=== PATIENT | female | born 1995 | race Caucasian/White ===

== ENCOUNTER 2018-07-23 08:04 | Emergency (ER) | payer OTHER ==
[2018-07-23] MEDS ORDERED: SODIUM CHLORIDE 0.9% 1,000 ML IV ONE ×3 (08:16→12:23)
--- NOTE | 2018-07-23 08:19 | ED Physician Documentation ---
History of Present Illness - Stated complaint Stated Complaint: SOA/ WKS PREG - History obtained from History obtained from: Patient - History of Present Illness Timing: Yesterday - Additonal information Additional information: The patient is a 23-year-old female, at 31 weeks gestation, who presents with back pain and shortness of breath. She states "I think I have the flu." Her symptoms started yesterday and continued this morning. She reports cough with minimal sputum production. She reports associated nausea, but denies vomiting. She denies fever, chest pain, or dysuria. She denies history of similar symptoms in the past. She was in contact with another person at the gym who was sick with similar symptoms. Review of Systems Constitutional: denies: Fever Eyes: denies: Irritation Ears: denies: Tinnitus/ringing Nose: reports: Congestion Throat: denies: Sore throat Cardiac: denies: Chest pain / pressure, Palpitations Respiratory: reports: Dyspnea, Cough (mild, nonproductive) GI: reports: Nausea. denies: Abdominal Pain, Vomiting : denies: Dysuria, Vaginal bleeding Skin: denies: Rash Musculoskeletal: reports: Back pain. denies: Extremity pain, Extremity swelling Neurologic: denies: Focal weakness, Numbness, Headache PD PAST MEDICAL HISTORY - Past Medical History Cardiovascular: None Respiratory: None Neuro: None Endocrine/Autoimmune: None - Present Medications Home Medications: Ambulatory Orders Medication Instructions Recorded Confirmed Calcium Carbonate [Calcium] 07/23/18 Cetirizine [ZyrTEC] 07/23/18 Oseltamivir [Tamiflu] 75 mg PO BID #10 capsule 07/23/18 Venlafaxine HCl [Effexor Xr] 150 mg PO 07/23/18 raNITIdine [Zantac] 07/23/18 07/23/18 - Allergies Allergies/Adverse Reactions: Allergies Allergy/AdvReac Type Severity Reaction Status Date / Time No Known Drug Allergies Allergy Verified 07/23/18 08:21 PD ED PE NORMAL - Vitals Vital signs reviewed: Yes (tachycardic) - General General: Alert and oriented X 3, Well developed/nourished - HEENT HEENT: Atraumatic, EOMI, Moist mucous membranes, Pharynx benign - Neck Neck: No adenopathy, No JVD - Cardiac Cardiac: No murmur, Other (Rapid rate, regular rhythm.) - Respiratory Respiratory: Clear bilaterally - Abdomen Abdomen: Soft, Non tender, Other (Gravid uterus.) - Back Back: No CVA TTP, No spinal TTP - Derm Derm: No rash - Extremities Extremities: No edema, No calf tenderness / cord - Neuro Neuro: Alert and oriented X 3, No motor deficit, No sensory deficit, Normal speech Results - Vitals Vitals: Oxygen O2 Source Room air - EKG (time done) 08:24 Rate: Rate (enter#) (150) Rhythm: Sinus tachycardia [place]: Normal Ischemia: Q waves (V2, V3) Other comments: Other comments (sinus tach vs. PAT vs. atrial flutter with 2:1 block.) Computer interpretation: Disagree with computer (Doubt old anterior IA.) - Labs Labs: Laboratory Tests 07/23/18 07/23/18 07/23/18 08:25 08:25 08:25 WBC 11.9 H RBC 4.51 Hgb 12.5 Hct 37.7 MCV 83.4 MCH 27.8 MCHC 33.3 RDW 13.7 Plt Count 237 MPV 7.0 L Neut # (Auto) 10.6 H Lymph # (Auto) 0.5 L [place] # (Auto) 0.7 Eos # (Auto) 0.1 Baso # (Auto) 0.0 Absolute Nucleated RBC 0.00 Nucleated RBC % 0.0 Sodium 136 Potassium 3.6 Chloride 106 Carbon Dioxide 20 L Anion Gap 10.0 BUN 5 L Creatinine 0.5 Estimated GFR (MDRD) 156 Glucose 90 Calcium 8.8 Total Bilirubin 0.5 AST 41 ALT 43 Alkaline Phosphatase 164 H Total Protein 6.7 Albumin 3.1 L Globulin 3.6 Albumin/Globulin Ratio 0.9 L Lipase 26 Urine Color YELLOW Urine Clarity HAZY Urine pH 7.0 Ur Specific [place] 1.020 Urine Protein NEGATIVE Urine Glucose (UA) NEGATIVE Urine Ketones NEGATIVE Urine Occult Blood NEGATIVE Urine Nitrite NEGATIVE Urine Bilirubin NEGATIVE Urine Urobilinogen 0.2 (NORMAL) Ur Leukocyte Esterase NEGATIVE Urine RBC None Seen Urine WBC 0-3 Ur Squamous Epith Cells MANY Squamous H Urine Bacteria Many H Ur Microscopic Review INDICATED Urine Culture Comments NOT INDICATED Influenza A (Rapid) Influenza B (Rapid) 07/23/18 11:04 WBC RBC Hgb Hct MCV MCH MCHC RDW Plt Count MPV Neut # (Auto) Lymph # (Auto) [place] # (Auto) Eos # (Auto) Baso # (Auto) Absolute Nucleated RBC Nucleated RBC % Sodium Potassium Chloride Carbon Dioxide Anion Gap BUN Creatinine Estimated GFR (MDRD) Glucose Calcium Total Bilirubin AST ALT Alkaline Phosphatase Total Protein Albumin Globulin Albumin/Globulin Ratio Lipase Urine Color Urine Clarity Urine pH Ur Specific [place] Urine Protein Urine Glucose (UA) Urine Ketones Urine Occult Blood Urine Nitrite Urine Bilirubin Urine Urobilinogen Ur Leukocyte Esterase Urine RBC Urine WBC Ur Squamous Epith Cells Urine Bacteria Ur Microscopic Review Urine Culture Comments Influenza A (Rapid) POSITIVE H Influenza B (Rapid) Negative - Rads (name of study) OB U/S Radiology: Prelim report reviewed, See rad report ([facility]arthy live intrauterine with gestational age 30 weeks, 6 days based on assigned dating. Estimated weight is within expected limits for assigned dating. Normal amniotic fluid volume.) Venous doppler U/S Bilateral LE's Radiology: Prelim report reviewed, See rad report (No evidence for DVT in the lower extremities.) PD MEDICAL DECISION MAKING - ED course Complexity details: reviewed results, re-evaluated patient, considered differential, d/w patient, d/w family, d/w application support consultant ED course: The patient's presentation is significant for influenza a, with associated tachycardia and mild dehydration. She is currently at 31 weeks gestation. Because of her significant tachycardia of 150 at the time of arrival, the possibility of atrial flutter with 2:1 block was considered. Metoprolol 5 mg administered IV, which reduced her heart rate to 120. It did not reveal flutter waves, making sinus tachycardia the most likely rhythm. Normal saline was administered IV. After 2 L her heart rate remained tachycardic although less than initially, with a heart rate in the 120s. The possibility of pulmonary embolus was considered. Because of her , it was preferred to avoid radiation from a CT pulmonary angiogram if at all possible. A venous Doppler ultrasound of both legs was performed, revealing no evidence of deep venous thrombosis. Pulse oximetry was monitored while the patient ambulated, revealing that she maintained pulse oximetry above 97% while ambulating. I would expect pulse oximetry to drop under exertion of ambulation if a pulmonary embolus was present. OB ultrasound was performed, revealing normal intrauterine at 30 weeks, 6 days gestation with normal heart rate in the 140s, and no placental abnormalities or abnormal fluid collections. Further treatment in the emergency department included administration of acetaminophen 650 mg orally, and Tamiflu 75 mg orally. I discussed her condition with Dr. Robledo who is on-call for obstetrics. He agrees with outpatient follow-up. She is being discharged with a prescription for Tamiflu. I discussed with her and her family the expected course of illness, symptomatic treatment and outpatient follow-up, as well as potentially worrisome signs or symptoms that should prompt reevaluation in the emergency department. Departure - Departure Disposition: Home, Self Care Clinical Impression: Influenza A Qualifiers: Weeks of gestation: 31 weeks Qualified Code(s): Z3A.31 - 31 weeks gestation of Condition: Stable Instructions: ED Flu, Medication: Tamiflu (Oseltamivir) Follow-Up: Bryan Burgos MD [Physician No Access] - Prescriptions: Oseltamivir [Tamiflu] 75 mg PO BID #10 capsule Comments: Drink plenty of fluids. Take Tamiflu twice daily for the next 5 days. You can use Tylenol every 4 hours, up to a maximum of 4000 mg in a 24-hour period. Contact your road consultant today or Thursday for further evaluation. Return to the emergency department if you develop increasing difficulty breathing, or otherwise worsening symptoms. Discharge Date/Time: 07/23/18 14:20
[2018-07-23] MEDS ORDERED: METOPROLOL 5 MG/5 ML VIAL IVP STA (08:30)
[2018-07-23 08:33] LABS: BASOPHILS % (AUTO) 0.2 %; EOSINOPHILS # (AUTO) 0.1 10^3/uL (0.0-0.7); EOSINOPHILS % (AUTO) 0.7 %; HGB - HEMOGLOBIN 12.5 g/dL (12.0-16.0); LYMPHOCYTES # (AUTO) 0.5 10^3/uL (1.5-3.5); MEAN CORPUSCULAR HEMOGLOBIN 27.8 pg (27.0-31.0); MEAN CORPUSCULAR HGB CONC 33.3 g/dL (32.0-36.0); MEAN CORPUSCULAR VOLUME 83.4 fL (81.0-99.0); MONOCYTES # (AUTO) 0.7 10^3/uL (0.0-1.0); NEUTROPHILS # (AUTO) 10.6 10^3/uL (1.5-6.6); NEUTROPHILS % (AUTO) 89.1 %; PLT - PLATELET COUNT 237 10^3/uL (130-450); RED BLOOD COUNT 4.51 10^6/uL (4.20-5.40); RED CELL DISTRIBUTION WIDTH 13.7 % (12.0-15.0); WHITE BLOOD COUNT 11.9 x10^3/uL (4.8-10.8)
[2018-07-23 08:41] LABS: BILIRUBIN,URINE NEGATIVE (NEGATIVE); GLUCOSE, URINE (UA) NEGATIVE (NEGATIVE); KETONES,URINE (UA) NEGATIVE (NEGATIVE); LEUKOCYTE ESTERASE, URINE NEGATIVE (NEGATIVE); NITRITE,URINE NEGATIVE (NEGATIVE); OCCULT BLOOD,URINE NEGATIVE (NEGATIVE); PROTEIN,URINE NEGATIVE (NEGATIVE); UROBILINOGEN,URINE 0.2 (NORMAL) E.U./dL (NORMAL)
[2018-07-23 08:45] LABS: CLARITY,URINE HAZY (CLEAR)
[2018-07-23 09:05] LABS: BACTERIA,URINE Many /HPF (None Seen); RBC,URINE None Seen /HPF (0-5); SQUAMOUS EPITHELIAL CELL,UR MANY Squamous (<= Few)
[2018-07-23 09:07] LABS: ALBUMIN 3.1 g/dL (3.2-5.5); ALBUMIN/GLOBULIN RATIO 0.9 (1.0-2.2); BILIRUBIN,TOTAL 0.5 mg/dL (0.2-1.0); CALCIUM 8.8 mg/dL (8.5-10.3); CREATININE 0.5 mg/dL (0.4-1.0); TOTAL PROTEIN 6.7 g/dL (6.7-8.2)
[2018-07-23] MEDS ORDERED: ACETAMINOPHEN 325 MG TABLET PO STA (09:41)
[2018-07-23] MEDS ORDERED: IOVERSOL 320 100 ML VIAL IVP ONE (10:04)
--- NOTE | 2018-07-23 12:46 | Ultrasound Report ---
Reason: Increasing back pain, 31 weeks gestation. Procedure Date: 07/23/2018 Accession Number: [id number] / [id number] Procedure: US - OB F/U or Repeat CPT Code: FULL RESULT: EXAM: FOLLOW-UP OBSTETRICAL ULTRASOUND EXAM DATE: 07/23/2018 11:10 AM. CLINICAL HISTORY: Increasing back pain, 31 weeks gestation. COMPARISON: None. TECHNIQUE: Real-time sonographic evaluation of the fetus performed by the aircraft charter dispatcher. Multiple marketing representative static images were saved for review. DATING: Established EGA 30 weeks, 6 days with JOHANNY 09/25/2018 based on assigned dating. EGA 31 weeks, 3 days with JOHANNY 09/21/2018 based on the current ultrasound. GENERAL EVALUATION [facility] . Cardiac activity: 148 bpm. movement: Visualized. Presentation: Cephalic. Placenta: Posterior position. Amniotic fluid: Normal. PK 13.1 cm. MVP 5 cm. BIOMETRY Bi-Parietal Diameter (BPD): 8.1 cm, 32 weeks, 2 days Head Circumference (HC): 29.7 cm, 32 weeks, 5 days Abdominal Circumference (AC): 27.5 cm, 31 weeks, 6 days Femur Length (FL): 5.5 cm, 29 weeks, 0 days Estimated Weight: 1708 g, 53rd percentile for 30 weeks, 6 days. ANATOMY No abnormality evident on limited views. A full survey was not performed. motion noted by aircraft charter dispatcher. MATERNAL STRUCTURES Maternal cervix measured 4.6 cm on transabdominal imaging, probably closed. Shadowing from adjacent calvarium limits visualization of maternal cervix. Normal right maternal ovary containing Doppler flow. Left ovary not seen. No left adnexal abnormality evident. IMPRESSION: 1. M[place]arthy live intrauterine with gestational age 30 weeks, 6 days based on assigned dating. 2. Estimated weight is within expected limits for assigned dating. 3. Normal amniotic fluid volume. RADIA
--- NOTE | 2018-07-23 12:51 | Ultrasound Report ---
Reason: 3rd trimester with potential DVT/PE. Procedure Date: 07/23/2018 Accession Number: [id number] / [id number] Procedure: US - Duplex Ext Veins Bilateral CPT Code: FULL RESULT: EXAM: BILATERAL LOWER EXTREMITY VENOUS ULTRASOUND EXAM DATE: 07/23/2018 11:31 AM. CLINICAL HISTORY: 3rd trimester with potential DVT/PE. Shortness of breath. Flu symptoms for 1 day. COMPARISON: None. TECHNIQUE: Real-time sonographic vascular imaging was performed by the professor of law through the lower extremities utilizing both color-flow and Doppler spectral analysis. Multiple in home sales representative static images were saved for review. FINDINGS: Right: Common Femoral Vein (CFV): Normal. CFV-GSV Junction: Normal. Profunda Femoral Vein (PFV): Normal. Femoral Vein (FV) Prox: Normal. Femoral Vein (FV) Mid: Normal. Femoral Vein (FV) Dist: Normal. Popliteal Vein: Normal. Posterior Tibial Veins: Normal. Peroneal Veins: Normal. Left: Common Femoral Vein (CFV): Normal. CFV-GSV Junction: Normal. Profunda Femoral Vein (PFV): Normal. Femoral Vein (FV) Prox: Normal. Femoral Vein (FV) Mid: Normal. Femoral Vein (FV) Dist: Normal. Popliteal Vein: Normal. Posterior Tibial Veins: Normal. Peroneal Veins: Normal. Other: None. IMPRESSION: No evidence for deep venous thrombosis bilaterally. RADIA
[2018-07-23] MEDS ORDERED: OSELTAMIVIR 75 MG CAPSULE PO STA (14:00)
[2018-07-23 14:16] VITALS: BP 118/57
== END 2018-07-23 14:20 | disposition home or self-care (01) ==
LOC: ED 08:04
DX: O99.513 Diseases of the respiratory system complicating pregnancy, third trimester (principal); J10.1 Influenza due to other identified influenza virus with other respiratory manifestations; O99.89 Other specified diseases and conditions complicating pregnancy, childbirth and the puerperium; R00.0 Tachycardia, unspecified; O99.283 Endocrine, nutritional and metabolic diseases complicating pregnancy, third trimester; E86.0 Dehydration; Z3A.31 31 weeks gestation of pregnancy
CPT/HCPCS: 36415; 76816; 80053; 81001; 83690; 85025; 87275; 87276; 93005; 93970; 96361; 96374; 99284; A9270; 81003; 87086